=== PATIENT | male | born 1980 | race Hispanic/Latino ===

== ENCOUNTER 2022-07-25 01:10 | Emergency (ER) | payer SELFPAY ==
[~2022-07-25] VITALS: Ht 182.9 cm; Wt 108.9 kg
[2022-07-25] MEDS ORDERED: FAMOTIDINE 20 MG/2 ML VIAL IV STA (02:15)
[2022-07-25] MEDS ORDERED: FAMOTIDINE 20 MG/2 ML VIAL IV ONE (02:41)
[2022-07-25] MEDS ORDERED: KETOROLAC TROMETHAMINE 30 MG/ML VIAL ONE (02:41)
[2022-07-25 03:34] VITALS: BP 126/82
== END 2022-07-25 03:34 | disposition home or self-care (01) ==
LOC: FSED 01:15
DX: R07.9 Chest pain, unspecified (principal); R11.0 Nausea; M25.569 Pain in unspecified knee; Z79.899 Other long term (current) drug therapy
CPT/HCPCS: 71046; 80053; 82553; 84484; 85025; 93005; 96374; 96376; 99283; J1885